=== PATIENT | female | born 1970 | race Caucasian/White ===

== ENCOUNTER 2017-07-06 09:15 | Inpatient (IN) | payer BC ==
[2017-07-14] MEDS ORDERED: CEFAZOLIN/Water 2 GM/20 ML SYRINGE ONE (10:06)
[2017-07-14] MEDS ORDERED: Midazolam HCl 2 mg/2 ml Vial ONE (10:06)
[2017-07-14] MEDS ORDERED: Heparin 5,000 UNITS/ML VIAL ONE (10:06)
[2017-07-14] MEDS ORDERED: Fentanyl 250 MCG/5 ML VIAL ONE (11:40)
[2017-07-14] MEDS ORDERED: Bupivacaine/Epinephrine 0.25% 30 ML VIAL ONE (11:45)
[2017-07-14] MEDS ORDERED: Fentanyl 100 MCG/2 ML VIAL ONE ×2 (13:59→14:56)
[2017-07-14] MEDS ORDERED: Promethazine HCl 25 MG/ML VIAL IM PRN ×3 (14:36→15:20)
[2017-07-14] MEDS ORDERED: Ondansetron HCl/PF 4 MG/2 ML Vial IVP PRN ×3 (14:36→15:20)
[2017-07-14] MEDS ORDERED: Promethazine HCl 25 MG/ML VIAL SLOW IVP PRN (14:36)
[2017-07-14] MEDS ORDERED: diphenhydrAMINE 50 MG/ML VIAL IVP PRN ×2 (14:37→15:20)
[2017-07-14] MEDS ORDERED: diphenhydrAMINE 50 MG/ML VIAL IM PRN (14:37)
[2017-07-14] MEDS ORDERED: Fentanyl 5000 MCG/250 ML CADD IVPB PRN (14:37)
[2017-07-14] MEDS ORDERED: Zolpidem Tartrate 5 MG TAB PO PRN (14:37)
[2017-07-14] MEDS ORDERED: Naloxone HCl 0.4 mg/ml Vial IV PRN (14:37)
[2017-07-14] MEDS ORDERED: diphenhydrAMINE 25 MG CAP PO PRN (14:37)
[2017-07-14] MEDS ORDERED: Communication Order-Pharmacy FS SCH (14:45)
[2017-07-14] MEDS ORDERED: Fentanyl 20 MCG/ML 250 ML ONE (15:03)
[2017-07-14] MEDS ORDERED: Dextrose 50% Abboject 50 ML SYRINGE SLOW IVP PRN (15:20)
[2017-07-14] MEDS ORDERED: Dextrose 5% in Water 1,000 ML IV PRN (15:20)
[2017-07-14] MEDS ORDERED: hydrALAZINE 20 MG/ML VIAL SLOW IVP PRN (15:20)
[2017-07-14] MEDS: D5 1/2 NS w/20 mEq KCL 1,000 ML IV SCH (16:00)
[2017-07-14] MEDS ORDERED: Ketorolac Tromethamine 30 MG/ML VIAL ONE (16:30)
[2017-07-14] MEDS ORDERED: Lidocaine 1% PF 5 ML VIAL ONE (16:30)
[2017-07-14] MEDS ORDERED: Glycopyrrolate 0.2 MG/ML 5 ML SYRINGE ONE (16:30)
[2017-07-14] MEDS ORDERED: PHENYLEPHRINE-NS 100 MCG/ML 10 ML SYRINGE ONE (16:30)
[2017-07-14] MEDS ORDERED: Propofol 200 MG/20 ML VIAL ONE (16:30)
[2017-07-14] MEDS ORDERED: Dexamethasone 20 MG/5 ML VIAL ONE (16:30)
[2017-07-14] MEDS ORDERED: Ondansetron HCl/PF 4 MG/2 ML Vial ONE (16:30)
[2017-07-14] MEDS: Acetaminophen 1,000 MG in Premix Bag 1 BAG IVPB SCH (17:46)
[2017-07-14 18:39] VITALS: BMI 33.2
[2017-07-14] MEDS ORDERED: Enoxaparin Sodium 40 MG/0.4 ML SYRINGE SC SCH (21:00)
[2017-07-15] MEDS: Acetaminophen 1,000 MG in Premix Bag 1 BAG IVPB SCH ×3 (00:15→14:46)
[2017-07-15] MEDS: D5 1/2 NS w/20 mEq KCL 1,000 ML IV SCH ×2 (00:16→07:21)
[2017-07-15 06:25] LABS: #Lymphocytes 1.7 thou/uL (1.20-3.40); #Neutrophils 11.5 thou/uL (1.40-6.50); %Eosinophils 0.1 % (0.0-10.0); %Monocytes 7.1 % (0.0-10.0); Hematocrit 34.9 % (36.0-47.0); Mean Platelet Volume 9.2 fL (7.4-10.4); Red Blood Cell (RBC) Count 3.76 mill/uL (4.20-5.40); White Blood Cell (WBC) Count 14.3 thou/uL (4.8-10.8)
[2017-07-15 06:30] LABS: Anion Gap 9 mmol/L (10-20); BUN (Urea Nitrogen) 7 mg/dL (7.0-18.7); Calc. Creatinine Clearance 141 mL/min (70-130); Calcium 8.4 mg/dL (7.8-10.44); Carbon Dioxide 23 mmol/L (22-29); Chloride 106 mmol/L (98-107); Estimated GFR-MDRD 86
--- NOTE | 2017-07-15 08:40 | RAD ---
CONTRAST SWALLOW UPPER GI SERIES SINGLE COLUMN: DATE: 07-15-17 History: 46-year-old female immediately status post bariatric surgery. Technique: Patient swallowed 15 ml of Gastrografin while upright. Brief, intermittent fluoroscopy performed. FINDINGS: Contrast material enters the narrowed gastric channel at an appropriate rate. There is no gastric out let obstruction, and no evidence of leakage. IMPRESSION: 1. Status post vertical sleeve gastrectomy. 2. No evidence of complications. POS: PADDY
[2017-07-15] MEDS ORDERED: Pantoprazole 40 MG VIAL IVP SCH (09:00)
[2017-07-15] MEDS ORDERED: Hydrocodone-Acetamin 15 ML UDCUP PO PRN (09:42)
[2017-07-15] MEDS ORDERED: GASTROGRAFIN 30 ML BOT ONE (09:45)
--- NOTE | 2017-07-15 12:16 | DIS ---
ADMIT DIAGNOSIS: Morbid obesity. DISCHARGE DIAGNOSES: Morbid obesity, hiatal hernia. PROCEDURES: Laparoscopic sleeve gastrectomy with hiatal hernia repair. SURGEON: Cornell Kinney M.D. ANESTHESIA: General. CONDITION AT DISCHARGE: Improved. STAFF: Dr. David Kinney. HOSPITAL COURSE: On postop day #1, her swallow test showed no obvious abnormality. She was started on a clear liquid diet which she was tolerating without difficulty. She is discharged home. She bernard l follow up with me in 2 weeks. Prescriptions for Lortab Elixir and Zofran dissolvable and Pantopraz ole sent to her pharmacy.
[2017-07-15 12:18] VITALS: BP 118/82; TEMP 98.4
--- NOTE | 2017-07-16 13:11 | OP ---
DATE OF SURGERY: 07/14/2017 PREOPERATIVE DIAGNOSES: 1. Morbid obesity with body mass index of 35. 2. Hypertension. 3. Dyslipidemia. POSTOPERATIVE DIAGNOSES: 1. Morbid obesity with body mass index of 35. 2. Hypertension. 3. Dyslipidemia. 4. Paraesophageal hiatal hernia. TECHNIQUES: 1. Laparoscopic sleeve gastrectomy with [place] staple line reinforcements and 38-[place] bougie. 2. Paraesophageal hiatal hernia repair with mesh without fundoplication. 3. EGD. SURGEON: David Kinney MD ANESTHESIA: General. ESTIMATED BLOOD LOSS: Minimal. COMPLICATIONS: None. SPECIMEN: Stomach. INDICATION: The patient is a 46-year-old female who presents for weight loss surgery. She has been to our preoperative seminar, underwent dietary education. She understands risks, benefits, specific to sleeve, as well as alternative procedures. PROCEDURE IN DETAIL: The patient was taken to the operating room and laid supine on the operating ro om table. After general anesthetic was obtained, bilateral arms and legs were double strapped to a b ariatric table. The abdomen was shaved, prepped and draped in a sterile fashion. Left subcostal 5-m m Optiview trocar was placed in the usual fashion. High-flow pneumoperitoneum was obtained. Right a nd left abdominal 12-mm port as well as a right subcostal 5-mm port were placed under direct visualiz ation. The patient was placed in reverse Trendelenburg position. A 5-mm incision made at the xiphoi d and the Juan was used to raise the liver off the GE junction. The patient was found to have a hiatal hernia. Short gastrics were taken down along the greater curve of the stomach. The left cru s, posterior fundus were completely dissected. Short gastrics were taken down to a distance of 5 cm proximal to the pylorus. The gastrohepatic ligament was entered medially and the right kim of the d iaphragm was found. The mediastinum is entered just medial to the right kim of the diaphragm and ci rcumferential dissection of the esophagus was performed. A 38 bougie was brought in and its tip left in the antrum of the stomach. A green load was fired up with a distance of 6 cm proximal to the pyl orus angled up to the incisura. Care was taken to avoid being too close to the incisura. Next, thro ugh the gastrohepatic ligament, two sutures were placed posteriorly and bring in the right and left c rura together with Ethibond suture in the tie knot system. This closed the diaphragmatic defect, but not too tight around 38[place] bougie. The sleeve gastrectomy was then finished firing multiple gol d loads up along the bougie and the stomach was completely transected at the angle of His. The stoma ch was removed from the left abdominal incision and this fascial defect was closed using GraNee needl e 0 Vicryl tie. All port sites were infiltrated using local anesthetic. The upper abdomen is filled with saline. EGD scope was passed from the esophagus, stomach to the level of the duodenum without obstruction. There was no stricture at the incisura. No bleeding internally or externally on the st aple line. There is no evidence of too much stenosis at the diaphragmatic hiatus. No involvement of the GE junction with the staple line. EGD scope was used to decompress the stomach, was pulled and removed. Juan retractor was removed under direct visualization without bleeding or injury. All port sites were removed under direct visualization without bleeding. Pneumoperitoneum was let down. Vicryl was used to close the fascial defect from left abdominal incision. All incisions were irrig ated and closed using 4-0 Monocryl and Dermabond. The patient went to recovery in stable condition. All instrument counts, needle counts, and lap counts were correct.
[2017-07-24] MEDS ORDERED: Hydrocodone-Acetamin 15 ML UDCUP PO PRN (15:20)
== END 2017-07-15 13:35 | disposition home or self-care (01) | DRG 621 ==
LOC: EDSTATUS 15:00 → SURG A 07-14 09:18
PROVIDERS: ADMIT Surgery; ATTEND Surgery
PROC: 0DB64Z3 Excision of Stomach, Percutaneous Endoscopic Approach, Vertical (ICD-10-PCS; principal; 2017-07-14)
PROC: 0BUT4JZ Supplement Diaphragm with Synthetic Substitute, Percutaneous Endoscopic Approach (ICD-10-PCS; 2017-07-14)
DX: E66.01 Morbid (severe) obesity due to excess calories (principal); I10 Essential (primary) hypertension; E78.5 Hyperlipidemia, unspecified; K44.9 Diaphragmatic hernia without obstruction or gangrene; Z68.35 Body mass index [BMI] 35.0-35.9, adult; Z88.2 Allergy status to sulfonamides
CPT/HCPCS: 36415; 74241; 80048; 85025; 88307; 88312; C9113; J0131; J1100; J1644; J1650; J1885; J2001; J2250; J2405; J2704; J3010

== ENCOUNTER 2017-07-06 09:35 | Outpatient (CLI) | payer BC ==
[2017-07-06 11:19] LABS: #Eosinphils 0.1 thou/uL (0.0-0.7); #Monocytes 0.6 thou/uL (0.11-0.59); #Neutrophils 8.1 thou/uL (1.40-6.50); %Eosinophils 0.5 % (0.0-10.0); %Lymphocytes 18.6 % (21.0-51.0); %Monocytes 5.7 % (0.0-10.0); Hematocrit 40.3 % (36.0-47.0); Mean Platelet Volume 8.1 fL (7.4-10.4); Red Blood Cell (RBC) Count 4.39 mill/uL (4.20-5.40); White Blood Cell (WBC) Count 10.8 thou/uL (4.8-10.8)
[2017-07-06 11:26] LABS: Hemoglobin A1c 5.8 % (4.0-6.0)
[2017-07-06 11:44] LABS: ALT (SGPT) 19 U/L (8-55); AST (SGOT) 23 U/L (5-34); Alkaline Phosphatase 63 U/L (40-150); Anion Gap 12 mmol/L (10-20); BUN (Urea Nitrogen) 14 mg/dL (7.0-18.7); Bilirubin, Direct 0.1 mg/dL (0.1-0.3); Bilirubin, Total 0.3 mg/dL (0.2-1.2); Calc. Creatinine Clearance 0 mL/min (70-130); Calcium 9.8 mg/dL (7.8-10.44); Carbon Dioxide 28 mmol/L (22-29); Chloride 101 mmol/L (98-107); Estimated GFR-MDRD 84; Globulin 3.2 g/dL (2.4-3.5); Protein, Total 7.4 g/dL (6.0-8.3)
--- NOTE | 2017-07-06 15:22 | RAD ---
CHEST TWO VIEWS: History: Pre op. FINDINGS: Cardiac silhouette and pulmonary vasculature are unremarkable. Mediastinum is midline. There is no co nfluent airspace consolidation, pneumothorax, or pleural fluid apparent. IMPRESSION: 1. No active cardiopulmonary abnormalities are demonstrated. POS: MICHELETH
== END 2017-07-06 09:36 | disposition home or self-care (01) ==
LOC: LABBT 09:35
PROVIDERS: ATTEND Surgery
DX: Z01.818 Encounter for other preprocedural examination (principal); E66.01 Morbid (severe) obesity due to excess calories
CPT/HCPCS: 71020; 80053; 80076; 83036; 84703; 85025; 93005; 93010

== ENCOUNTER 2022-05-28 13:14 | Outpatient (CLI) | payer BC | END 2022-05-28 13:15 | disposition home or self-care (01) | LOC: BICRAD 13:14 | PROVIDERS: ATTEND Student in an Organized Health Care Education/Training Program | DX: M54.50 Low back pain, unspecified (principal); W19.XXXA Unspecified fall, initial encounter | CPT/HCPCS: 72110 ==

== ENCOUNTER 2023-01-26 16:05 | Emergency (ER) | payer BC ==
[2023-01-26 16:33] LABS: #Eosinphils 0.2 thou/uL (0.0-0.7); #Monocytes 0.8 thou/uL (0.11-0.59); %Basophils 0.2 % (0.0-1.0); %Eosinophils 1.9 % (0.0-10.0); %Lymphocytes 38.1 % (21.0-51.0); %Monocytes 8.1 % (0.0-10.0); %Neutrophils 51.5 % (42.0-75.0); Hemoglobin 13.1 g/dL (12.0-16.0); Mean Corpuscular HGB CONC 33.2 g/dL (32.0-36.0); Mean Corpuscular Volume 96.3 fl (78.0-98.0); Mean Platelet Volume 10.6 fL (7.4-10.4); Platelet Count 262 10x3/uL (130-400); RBC Distribution Width 13.7 % (11.5-14.5); Red Blood Cell (RBC) Count 4.09 mill/uL (4.20-5.40); White Blood Cell (WBC) Count 9.6 10x3/uL (4.8-10.8)
[2023-01-26 16:56] LABS: ALT (SGPT) 18 U/L (8-55); AST (SGOT) 23 U/L (5-34); Albumin 4.5 g/dL (3.5-5.0); Alkaline Phosphatase 79 U/L (40-110); Anion Gap 12 mmol/L (10-20); BUN (Urea Nitrogen) 15 mg/dL (9.8-20.1); Bilirubin, Total 0.2 mg/dL (0.2-1.2); Calc. Creatinine Clearance 0 mL/min (70-130); Calcium 10.1 mg/dL (7.8-10.44); Carbon Dioxide 26 mmol/L (22-29); Chloride 98 mmol/L (98-107); Estimated GFR 78; Globulin 3.6 g/dL (2.4-3.5); Glucose 109 mg/dL (70-105); Potassium 3.4 mmol/L (3.5-5.1); Protein, Total 8.1 g/dL (6.0-8.3); Sodium 133 mmol/L (136-145)
== END 2023-01-26 17:37 | disposition home or self-care (01) ==
LOC: ERS 16:05
DX: R07.89 Other chest pain (principal); R00.2 Palpitations; T50.5X5A Adverse effect of appetite depressants, initial encounter; E78.5 Hyperlipidemia, unspecified; E78.00 Pure hypercholesterolemia, unspecified; I10 Essential (primary) hypertension
CPT/HCPCS: 71045; 80053; 84484; 85025; 93005; 96360